=== PATIENT | male | born 1945 | race Caucasian/White ===

== ENCOUNTER 2016-03-20 07:30 | Inpatient (IN) ==
[2016-03-20 14:17] LABS: Blood Urea Nitrogen 16 mg/dl (8-23)
[2016-03-20 14:30] LABS: Appearance,Urine HAZY; Bilirubin,Urine NEG (NEG); Color,Urine YELLOW; Glucose,Urine (UA) NEGATIVE (NEG); Leukocyte Esterase,Urine NEG /uL (NEG); Nitrate,Urine NEG (NEG); Protein,Urine NEG (NEG); Specific Gravity,Urine 1.018 (1.000-1.035); Urine Blood NEG mg/dL (<0.03); Urobilinogen,Urine NEG (NEG)
[2016-03-20 14:56] LABS: Basophils # (Auto) 0 K/mcL (0.0-0.3); Basophils % (Auto) 0.3 % (0.0-2.0); Eosinophils # (Auto) 0.2 K/mcL (0.0-0.7); Eosinophils % (Auto) 2.6 % (0.0-7.0); Granulocytes % (Auto) 68.5 % (38.0-78.0); Lymphocytes # (Auto) 1.5 K/mcL (1.5-4.8); Lymphocytes % (Auto) 19.8 % (15.5-49.0); Mean Cell Volume 90.4 fL (80.0-100.0); Mean Corpuscular HGB Conc 32.7 g/dL (31.0-36.0); Mean Corpuscular Hemoglobin 29.6 pg (26.0-34.0); Monocytes # (Auto) 0.7 K/mcL (0.1-0.9); Monocytes % (Auto) 8.8 % (1.0-9.0); Platelet Count 181 K/mcL (140-440); RBC 5.26 M/mcL (4.50-5.90); Red Cell Distribution Width 13.2 % (11.5-14.5)
[2016-03-22] MEDS ORDERED: oxyCODONE 10 MG TAB.ER.12H PO SCH (05:00)
[2016-03-22] MEDS ORDERED: ceFAZolin 1 GM VIAL IV SCH (05:00)
[2016-03-22] MEDS ORDERED: CELECOXIB 200 MG CAPSULE PO SCH (05:00)
[2016-03-22] MEDS ORDERED: PREGABALIN 150 MG CAPSULE PO SCH (05:00)
[2016-03-22] MEDS ORDERED: KETOROLAC 30 MG, ROPIVACAINE HCL/PF 49.5 ML, EPINEPHrine 0.5 MG, 0.9 % SODIUM CHLORIDE ... IJ SCH (06:30)
[2016-03-22] MEDS ORDERED: TRANEXAMIC ACID 1,000 MG/10 ML VIAL IV ONE (08:15)
[2016-03-22] MEDS ORDERED: MIDAZOLAM 5 MG/5 ML VIAL IV ONE (08:15)
[2016-03-22] MEDS ORDERED: ROPIVACAINE HCL/PF 30 ML VIAL IJ ONE (08:15)
[2016-03-22] MEDS ORDERED: DEXAMETHASONE 10 MG/ML VIAL IV ONE (08:15)
[2016-03-22] MEDS ORDERED: PROPOFOL 200 MG/20 ML VIAL IV ONE (08:15)
[2016-03-22] MEDS ORDERED: ONDANSETRON 4 MG/2 ML VIAL IV ONE (08:15)
[2016-03-22] MEDS ORDERED: LIDOCAINE HCL/PF 100 MG/5 ML SYRINGE IV ONE (08:15)
[2016-03-22] MEDS ORDERED: GLYCOPYRROLATE 0.2 MG/ML VIAL IV ONE (08:15)
[2016-03-22] MEDS ORDERED: ATROPINE SULFATE 0.4 MG/ML VIAL IV PRN (09:25)
[2016-03-22] MEDS ORDERED: ONDANSETRON 4 MG/2 ML VIAL IV PRN ×2 (09:25→11:27)
[2016-03-22] MEDS ORDERED: METHOCARBAMOL 1,000 MG/10 ML VIAL IV PRN (09:25)
[2016-03-22] MEDS ORDERED: diphenhydrAMINE 50 MG/ML VIAL IV PRN (09:25)
[2016-03-22] MEDS ORDERED: NALOXONE HCL 0.4 MG/ML VIAL IV PRN (09:25)
[2016-03-22] MEDS ORDERED: MEPERIDINE 25 MG/ML SYRINGE IV PRN (09:25)
[2016-03-22] MEDS ORDERED: ePHEDrine 50 MG/ML AMPUL IV PRN (09:25)
[2016-03-22] MEDS ORDERED: fentaNYL 100 MCG/2 ML VIAL IV PRN (09:25)
[2016-03-22] MEDS ORDERED: BENZOCAINE/MENTHOL 1 LOZENGE PO PRN ×2 (09:25→11:27)
[2016-03-22] MEDS ORDERED: METOPROLOL TARTRATE 5 MG/5 ML VIAL IV PRN (09:25)
[2016-03-22] MEDS ORDERED: PROMETHAZINE 25 MG/ML VIAL IV PRN (09:25)
[2016-03-22] MEDS ORDERED: HYDROmorphone 2 MG/ML SYRINGE IV PRN ×2 (09:25→11:27)
[2016-03-22] MEDS ORDERED: IPRATROPIUM/ALBUTEROL 3 ML AMPUL.NEB NEB PRN (09:25)
[2016-03-22] MEDS ORDERED: FLUMAZENIL 0.1 MG/ML ML IV PRN (09:25)
[2016-03-22] MEDS ORDERED: LACTATED RINGERS 1,000 ML IV SCH (09:30)
[2016-03-22] MEDS ORDERED: TRANEXAMIC ACID 1,000 MG/10 ML VIAL IV SCH (09:55)
--- NOTE | 2016-03-22 10:07 | Brief Operative Note ---
Date of procedure: 03/22/16 Pre-op diagnosis: Left knee severe DJD Post-op diagnosis: same Procedure: Left TKA Grafts/Implants: Yes ([place] Triathlon CR femur 4, 5 tibia, 11 mm X3 insert, 36 patella) Anesthesia: spinal Findings: above Complications: none Surgeon: Syed Alfaro Fabric Sourcer: Alejandro Brothers Estimated blood loss (cc): 30 Specimens Removed/Pathology: none sent Condition: stable Disposition: PACU
--- NOTE | 2016-03-22 10:46 | XRay Report ---
CLINICAL INFORMATION: Postop total knee prostheses COMPARISON: None. FINDINGS: Total knee prosthesis anatomically aligned. There is no osseous abnormality. Periarticular soft tissue swelling and gas seen as expected. IMPRESSION: Negative Interpreted and Authenticated by: Aroldo Beck 03/22/16
--- NOTE | 2016-03-22 11:02 | Operative Note ---
DATE OF OPERATION: 03/22/2016 PREOPERATIVE DIAGNOSIS: Left knee severe degenerative joint disease. POSTOPERATIVE DIAGNOSIS: Left knee severe degenerative joint disease. PROCEDURE PERFORMED: Left total knee arthroplasty using a [place] Triathlon size 4 cruciate retaining femoral component, size 5 tibial baseplate, an 11 mm X3 insert with a 36 mm patellar button. SURGEON: Syed Alfaro MD. INSPECTOR AIR CARRIER: Maninder Brothers PA-C. ANESTHESIA: Spinal plus LMA general. DRAINS: None. SPECIMENS: Bone cuts, which were discarded. BLOOD LOSS: 30 mL POSTOPERATIVE CONDITION: Stable. INDICATIONS FOR SURGERY: This is a 70-year-old male who has had longstanding worsening left knee pain and radiographs showing severe bone on bone tricompartmental osteoarthritis. FINDINGS AT SURGERY: As above. Preoperatively, he had a quite significant flexion contracture. Postoperative diagnosis showed good overall limb alignment, stability, and patellar tracking. PROCEDURE IN DETAIL: The patient had been seen preoperatively. Informed consent had been obtained after discussion of risks and benefits of surgery. Risks including, but not limited to, bleeding, possibly requiring transfusion; infection, possibly requiring implant removal and prolonged IV antibiotics; injury to nerves, blood vessels, and other surrounding structures; anesthetic risks; incomplete or no resolution of symptoms; stiffness, pain; instability; DVT and pulmonary embolus risks; and the possibility of needing further surgery. He understood these risks and wished to proceed. Correct operative site was marked. Spinal anesthesia was given in preoperative holding and the patient was taken to the operating room and general anesthesia induced. The left lower extremity was carefully prepped and draped in normal sterile fashion and a time-out was performed verifying patient name, operative site, and plan. Esmarch was used to exsanguinate the extremity and tourniquet was inflated. Skin surface was covered with Ioban and then Esmarch was used to exsanguinate the extremity and tourniquet was inflated to 300. Midline incision was made with a scalpel through skin and subcutaneous tissue and then a medial parapatellar arthrotomy made. IrriSept was irrigated and then subperiosteal exposure was done of the anterior medial tibia and distal anterior cortex of the femur. ACL was transected. We went ahead and cut our patella first measuring with a caliper and then freehand resection to within a millimeter of his ch[place]im[place] thickness using a 10 mm patellar button. We went ahead and placed the cut protector and then subluxed the patella off the side. A drill hole was made in the distal femur and flexible IM crispin passed. A 5 degree valgus cut block was pinned into place. Due to his large flexion contracture, we went ahead and moved our distal cut up to a 10 mm resection. We went ahead and made our distal femur cut and then marked our [place]'s line epicondylar access. The sizer block was pinned into place and we stylused. It appeared to be between a 4 and 5. We went ahead and matched 3 degrees of external rotation to his [place] line epicondylar access. We drilled our holes. Size 5 4-in-1 block was placed. We went ahead and made our anterior cut. This was not deep enough and was significantly proud so we went ahead and downsized to a size 4 and recut our anterior cut. This was more flush with the anterior cortex so we went ahead and made our posterior and chamfer cuts. Osteophytes were removed medially and laterally and then tibia was subluxed forward. Medial and lateral menisci were excised and then a drill hole was made in the ACL footprint. The IM crispin was passed down. We stylused 9 off of the lateral side which is most normal. We pinned this into place, 3 degree slope and made our tibial cut. This came out just below our medial defect and we sized this to a size 5. The tibia was externally rotated as bone coverage would allow to the medial third of the tibial tubercle and pinned into place. Boss reamer and keel punch were used to repair and a keeled tibial trial was placed. The femur was elevated and a curved osteotome used to remove posterior osteophytes and then curved curet to remove them. We then placed our size 4 femur. We centered this with the notch as he was quite a bit wider medial to lateral and anterior to posterior. Once this was positioned, we drilled our peg holes. The 9 insert trial was placed which showed reasonable stability. We went ahead and then sized the patella to 36, which was medialized maximally. Holes were drilled and then a patellar trial was placed. Again, we remeasured and we were within 1 mm of our preoperative patellar thickness. We went ahead and performed a lateral facetectomy and then checked our patellar tracking, which was excellent. We went ahead and opened our implants except for the insert. We removed trial implants and irrigated IrriSept. After a minute, we pulse lavaged copiously while antibiotic cement was mixed. We cemented the tibia followed by the femur after cleaning the cancellous surfaces with CO2 gun. Excess cement was removed and the 9 insert trial was placed. The knee was placed into full extension and then final cement removal was done. We then cemented the patella and went ahead and injected our pain cocktail into the pericapsular tissues, as well as the subcutaneous. The knee was held in full extension and more IrriSept was irrigated until cement had fully hardened, we then pulse lavaged again and removed the trial insert. We went ahead and tried an 11 insert and this improved stability even better. We were still able to get nearly full extension, so we went ahead and opened an 11 insert. We injected the remainder of the cocktail in the posterior medial capsule and then the 11 X3 insert was impacted, carefully verified to be fully seated. We then did and final IrriSept to the joint, after minute pulse lavaged and then placed the knee over a bump. Interrupted #1 Vicryl was used, [id number] around the patella and running #1 Vicryl for patellar tendon and quad tendon. Another IrriSept irrigation was done and then after a minute pulse lavaged, and then 2-0 Monocryl used for subcutaneous and gee for skin. Xeroform and sterile dressing were applied. Tourniquet was released. The patient was awakened, extubated, and transferred to recovery in stable condition. SAEID:[email or web address] Job ID: [id number] Doc ID: [id number] Syed Alfaro MD
[2016-03-22] MEDS ORDERED: POLYETHYLENE GLYCOL 3350 17 GM PACKET PO PRN (11:27)
[2016-03-22] MEDS ORDERED: MAGNESIUM HYDROXIDE 30 ML ORAL.SUSP PO PRN (11:27)
[2016-03-22] MEDS ORDERED: BISACODYL 10 MG SUPP.RECT PR PRN (11:27)
[2016-03-22] MEDS ORDERED: FLEETS ADULT ENEMA PR PRN (11:27)
[2016-03-22] MEDS: 0.9 % SODIUM CHLORIDE 1,000 ML IV SCH ×2 (13:14→22:36)
[2016-03-22] MEDS: 0.9 % SODIUM CHLORIDE 10 ML SYRINGE IV SCH ×2 (15:41→22:38)
[2016-03-22] MEDS: KETOROLAC 15 MG/ML VIAL IV SCH ×2 (15:41→17:34)
[2016-03-22] MEDS: ceFAZolin 1 GM VIAL IV SCH (18:55)
[2016-03-22] MEDS: HYDROcodone/APAP 10/325MG TABLET PO PRN (20:41)
[2016-03-22] MEDS: DOCUSATE SODIUM 100 MG CAPSULE PO SCH (20:41)
[2016-03-22] MEDS: ASPIRIN 325 MG ENTERIC COATED TABLET PO SCH (20:41)
[2016-03-22] MEDS ORDERED: SENNOSIDES 1 TABLET PO SCH (21:00)
[2016-03-23] MEDS: KETOROLAC 15 MG/ML VIAL IV SCH ×3 (00:51→12:24)
[2016-03-23] MEDS: 0.9 % SODIUM CHLORIDE 1,000 ML IV SCH ×2 (00:51→07:55)
[2016-03-23] MEDS: ceFAZolin 1 GM VIAL IV SCH (03:41)
[2016-03-23] MEDS ORDERED: ceFAZolin 1 GM VIAL ONE (03:48)
[2016-03-23] MEDS: 0.9 % SODIUM CHLORIDE 10 ML SYRINGE IV SCH (06:10)
[2016-03-23] MEDS: HYDROcodone/APAP 10/325MG TABLET PO PRN ×2 (07:36→12:24)
[2016-03-23] MEDS: DOCUSATE SODIUM 100 MG CAPSULE PO SCH (08:20)
[2016-03-23] MEDS: ASPIRIN 325 MG ENTERIC COATED TABLET PO SCH (08:20)
[2016-03-23] MEDS ORDERED: CYANOCOBALAMIN (VITAMIN B-12) 500 MCG TABLET PO SCH (09:00)
[2016-03-23] MEDS ORDERED: MULTIVIT,THER IRON,CA,FA & MIN 1 TABLET PO SCH (09:00)
[2016-03-23] MEDS ORDERED: MAG HYDROX/AL HYDROX/SIMETH 30 ML ORAL.SUSP PO PRN (10:25)
--- NOTE | 2016-03-23 10:52 | Discharge Summary ---
Providers - Providers Patient information: Note initiated : 03/23/16 at 10:49 am Service Date, if different from initiated Date: [] Patient: Chet Sanchez 70 y/o M admitted on 03/22/16 for Left Total Knee Arthroplasty. Chief Complaint: [] Date of admission: 03/22/16 Discharge date: 03/23/16 Attending physician: Syed Alfaro Hospitalization Hospital course: Admitted after TKA. Progressed quickly and pain controlled so d/c'd POD#1. Discharge diagnosis: s/p L TKA Reason for admission: Left knee pain Procedures: Left TKA Exam - Exam Clean and dry: Yes Weight bearing status: full Ortho Discharge - TKA - Patient Instructions Diet: Regular Diet Activity: activity as tolerated, weight bearing as tolerated Total Knee Protocol: For Total Knee: Start ROM HARDEEP with stationary bike or rocking chair. Work on gaining full extension of knee. Posterior dislocation precautions provided. Hip abductor strengthening and gait training instructions provided. Apply Cryocuff as instructed. Dressing Care: May shower in 2 days, Aquacel Ag - leave on for 5 days Patient Education: Total Knee Replacement (DC) - Follow Up Plan Follow Up Appointments: Alejandro Brothers PA-C [Physician Information Resources Director] - 04/04/16 10:40 am Disposition: Home, Self-Care Prognosis: Good Rehab Potential: Good - Orders For Discharge Additional Discharge Orders: Physical Therapy at Discharge - TKA Location: Determined By Patient Toilet Riser Discharge Order Location: Determined By Patient Walker Location: Determined By Patient Pending Studies Resuscitation Status Full Code Diet Regular Diet Start FriMar 22 Lunch Acetaminophen/Hydrocodone Bitart ([place] 10/325mg) 0 tab PO Q4HP PRN PRN Reason: Pain Last Admin: 03/23/16 07:36 Dose: 1 tab Admin: 03/22/16 20:41 Dose: 1 tab Al Hydrox/Mg Hydrox/Simethicone (Maalox) 30 ml PO Q4-6HP PRN PRN Reason: Dyspepsia Last Admin: 03/23/16 10:40 Dose: 30 ml Aspirin (Ecotrin) 325 mg PO BID [facility] Last Admin: 03/23/16 08:20 Dose: 325 mg Admin: 03/22/16 20:41 Dose: 325 mg Cyanocobalamin (Vitamin B-12) 2,000 mcg PO DAILY [facility] Last Admin: 03/23/16 08:20 Dose: 2,000 mcg Docusate Sodium (Colace) 100 mg PO BID [facility] Last Admin: 03/23/16 08:20 Dose: 100 mg Admin: 03/22/16 20:41 Dose: 100 mg Sodium Chloride (Sodium Chloride 0.9%) 1,000 mls @ 100 mls/hr IV .Q10H [facility] Last Infusion: 03/23/16 07:56 Dose: 0 mls/hr Admin: 03/23/16 07:55 Dose: Admin: 03/23/16 00:51 Dose: 100 mls/hr Infusion: 03/22/16 23:14 Dose: 100 mls/hr Admin: 03/22/16 22:36 Dose: Admin: 03/22/16 13:14 Dose: 100 mls/hr Iron Carb/Multivit/[place]/Folic Acid (Multivitamin W/Minerals) 1 tab PO DAILY [facility] Last Admin: 03/23/16 08:20 Dose: 1 tab Ketorolac Tromethamine (Toradol) 15 mg IV Q6 [facility] Stop: 03/24/16 06:01 Last Admin: 03/23/16 05:36 Dose: 15 mg Admin: 03/23/16 00:51 Dose: 15 mg Admin: 03/22/16 17:34 Dose: 15 mg Admin: 03/22/16 15:41 Dose: 15 mg Senna (Senokot) 2 tab PO HS [facility] Last Admin: 03/22/16 20:41 Dose: 2 tab Sodium Chloride (Saline Flush) 10 ml IV Q8 [facility] Last Admin: 03/23/16 06:10 Dose: 10 ml Admin: 03/22/16 22:38 Dose: Not Given Admin: 03/22/16 15:41 Dose: 10 ml Shift Summary 03/23/16 04:17 Shift Summary by Ramirez German Patient has been up AMB in moss x1, as well as to & from bathroom x2 with FWW- gait mostly stable with SBA. NS @ 100 to LT F/A - can be saline locked. He was straight cathed for 900ml @ 1820 - has voided x2 since, with last void being 225ml @ 0345 - PVR scan for 211ml. Devendra wrap to LT knee - C,D,I. Has used CPM 0-65, and cryo-cuff regularly. He has taken only 1x dose [place] 10 (1) PO @ 2034 - otherwise pain well controlled with scheduled Toradol. Initialized on 03/23/16 04:17 - END OF NOTE
== END 2016-03-23 12:40 | disposition home or self-care (01) | DRG 470 ==
LOC: MEDSUR 03-22 04:55
PROVIDERS: ADMIT Orthopaedic Surgery; ATTEND Orthopaedic Surgery

== ENCOUNTER 2018-04-29 04:44 | Inpatient (IN) ==
[2018-04-24 12:10] LABS: Appearance,Urine CLEAR; Bilirubin,Urine NEG (NEG); Color,Urine YELLOW; Glucose,Urine (UA) NEGATIVE (NEG); Leukocyte Esterase,Urine NEG /uL (NEG); Protein,Urine NEG (NEG); Specific Gravity,Urine 1.018 (1.000-1.035); Urine Blood NEG mg/dL (<0.03); Urobilinogen,Urine NEG (NEG)
[2018-04-24 13:31] LABS: Basophils # (Auto) 0 K/mcL (0.0-0.3); Basophils % (Auto) 0.6 % (0.0-2.0); Eosinophils # (Auto) 0.2 K/mcL (0.0-0.7); Eosinophils % (Auto) 2.6 % (0.0-7.0); Granulocytes % (Auto) 71.3 % (38.0-78.0); Lymphocytes # (Auto) 1.2 K/mcL (1.5-4.8); Lymphocytes % (Auto) 17.5 % (15.5-49.0); Mean Cell Volume 87.9 fL (80.0-100.0); Mean Corpuscular HGB Conc 33.3 g/dL (31.0-36.0); Monocytes # (Auto) 0.5 K/mcL (0.1-0.9); Platelet Count 184 K/mcL (140-440); RBC 4.83 M/mcL (4.50-5.90); Red Cell Distribution Width 13.5 % (11.5-14.5)
[2018-04-24 14:27] LABS: Estimated Average Glucose(eAG) 114 mg/dL; Hemoglobin A1C 5.6 % HGB (4.0-6.0)
[2018-04-24 16:56] LABS: Blood Urea Nitrogen 16 mg/dl (8-23)
[2018-04-29] MEDS ORDERED: CELECOXIB 200 MG CAPSULE PO SCH (07:00)
[2018-04-29] MEDS ORDERED: oxyCODONE 10 MG TAB.ER.12H PO SCH (07:00)
[2018-04-29] MEDS ORDERED: PREGABALIN 75 MG CAPSULE PO SCH (07:00)
[2018-04-29] MEDS ORDERED: 0.9 % SODIUM CHLORIDE 9 ML, KETOROLAC 30 MG, ROPIVACAINE HCL/PF 49.5 ML, EPINEPHrine 0.... IJ SCH (07:00)
[2018-04-29] MEDS ORDERED: ceFAZolin 1 GM VIAL IV SCH (07:00)
[2018-04-29] MEDS ORDERED: MIDAZOLAM 5 MG/5 ML VIAL IV ONE (07:50)
[2018-04-29] MEDS ORDERED: TRANEXAMIC ACID 1,000 MG/10 ML VIAL IV ONE (07:50)
[2018-04-29] MEDS ORDERED: KETAMINE 100 MG/ML ML IV ONE (07:50)
[2018-04-29] MEDS ORDERED: DEXAMETHASONE 10 MG/ML VIAL IV ONE (07:50)
[2018-04-29] MEDS ORDERED: ONDANSETRON 4 MG/2 ML VIAL IV ONE (07:50)
[2018-04-29] MEDS ORDERED: fentaNYL 100 MCG/2 ML VIAL IV ONE (07:50)
[2018-04-29] MEDS ORDERED: LIDOCAINE HCL/PF 100 MG/5 ML SYRINGE IV ONE (07:50)
[2018-04-29] MEDS ORDERED: PROPOFOL 200 MG/20 ML VIAL IV ONE (07:50)
[2018-04-29] MEDS ORDERED: ROPIVACAINE HCL/PF 20 ML VIAL IJ ONE (07:50)
[2018-04-29] MEDS ORDERED: BENZOCAINE/MENTHOL 1 LOZENGE PO PRN ×2 (09:03→09:28)
[2018-04-29] MEDS ORDERED: ONDANSETRON 4 MG/2 ML VIAL IV PRN ×2 (09:03→09:28)
[2018-04-29] MEDS ORDERED: IPRATROPIUM/ALBUTEROL 3 ML AMPUL.NEB NEB PRN (09:03)
[2018-04-29] MEDS ORDERED: KETOROLAC 15 MG/ML VIAL IV PRN (09:03)
[2018-04-29] MEDS ORDERED: NALOXONE HCL 0.4 MG/ML VIAL IV PRN (09:03)
[2018-04-29] MEDS ORDERED: ACETAMINOPHEN 1,000 MG/100 ML BOTTLE IV ONE (09:03)
[2018-04-29] MEDS ORDERED: LACTATED RINGERS 250 ML IV PRN (09:03)
[2018-04-29] MEDS ORDERED: diphenhydrAMINE 50 MG/ML VIAL IV PRN (09:03)
[2018-04-29] MEDS ORDERED: fentaNYL 100 MCG/2 ML VIAL IV PRN (09:03)
[2018-04-29] MEDS ORDERED: PROMETHAZINE 25 MG/ML VIAL IV PRN (09:03)
[2018-04-29] MEDS ORDERED: FLUMAZENIL 0.1 MG/ML ML IV PRN (09:03)
[2018-04-29] MEDS ORDERED: LACTATED RINGERS 1,000 ML IV SCH (09:15)
[2018-04-29] MEDS ORDERED: POLYETHYLENE GLYCOL 3350 17 GM PACKET PO PRN (09:28)
[2018-04-29] MEDS ORDERED: HYDROmorphone 2 MG/ML VIAL IV PRN (09:28)
[2018-04-29] MEDS ORDERED: BISACODYL 10 MG SUPP.RECT PR PRN (09:28)
[2018-04-29] MEDS ORDERED: HYDROcodone/APAP 10/325MG TABLET PO PRN (09:28)
[2018-04-29] MEDS ORDERED: TRANEXAMIC ACID 1,000 MG/10 ML VIAL IV SCH (09:28)
[2018-04-29] MEDS ORDERED: MAGNESIUM HYDROXIDE 30 ML ORAL.SUSP PO PRN (09:28)
[2018-04-29] MEDS ORDERED: FLEETS ADULT ENEMA PR PRN (09:28)
--- NOTE | 2018-04-29 09:28 | Brief Operative Note ---
Date of procedure: 04/29/18 Pre-op diagnosis: R knee severe osteoarthritis Post-op diagnosis: same Procedure: Right robotic assisted total knee arthroplasty Grafts/Implants: Yes ([place] Triathlon CR 5 femur, 5 tibia, 9mm insert, 36 patella) Anesthesia: spinal, GLMA Findings: severe arthritis Complications: none Surgeon: Syed Alfaro Oracle Application Consultant: Alejandro Brothers Estimated blood loss (cc): 30 Specimens Removed/Pathology: none sent Condition: stable Disposition: PACU
--- NOTE | 2018-04-29 10:04 | Operative Note ---
DATE OF OPERATION: 04/29/2018 PREOPERATIVE DIAGNOSIS: Right knee severe osteoarthritis. POSTOPERATIVE DIAGNOSIS: Right knee severe osteoarthritis. PROCEDURE PERFORMED: Right robotic-assisted total knee arthroplasty placing a [place] Triathlon size 5 cruciate retaining femoral component, size 5 tibial baseplate, 9 mm X3 tibial insert with a 36 mm patellar button. SURGEON: Syed Alfaro M.D. FICTION AND NONFICTION WRITER PROSE: Maninder Brothers PA-C. ANESTHESIA: Spinal plus general. DRAINS: None. SPECIMENS: Bone cuts which were discarded. BLOOD LOSS: 30 mL. COMPLICATIONS: None. POSTOPERATIVE CONDITION: Stable. INDICATIONS FOR SURGERY: This is a 72-year-old male who has had longstanding, progressive worsening right knee pain. Radiographs showed eynh-al-uart osteoarthritis with multi-compartment osteophytes. FINDINGS AT SURGERY: He had severe multi-compartment osteoarthritis. Post implantation showed good limb alignment, stability, and patellar tracking. PROCEDURE IN DETAIL: The patient had been seen preoperatively and informed consent had been obtained after discussion of risks and benefits of surgery. Risks including, but not limited to, bleeding; infection; injury to nerves, blood vessels, other surrounding structures; anesthetic risks; incomplete or no resolution of symptoms; stiffness; swelling; pain; instability; DVT and pulmonary embolus risks; and the possibility of needing further revision surgery. He understood these risks and wished to proceed. Correct operative site was marked in preoperative holding and patient received spinal anesthesia. He was then taken to the operating room and LMA general given. The right lower extremity was then carefully prepped and draped in normal sterile fashion and a time-out was performed verifying patient name, operative site, and plan. Esmarch was used to exsanguinate the extremity and tourniquet was inflated to 300 mmHg. A midline incision was made with a scalpel through skin and subcutaneous tissue. Irrisept was irrigated and then a medial parapatellar arthrotomy made. Subperiosteal exposure was done of the anterior medial tibia. Anterior horns of the menisci were removed. ACL was transected. Femoral and tibial checkpoints were placed, then two stab incisions were made over the tibia and two over the femur, and bicortical pins placed and the arrays connected. Irrisept was irrigated in the joint and then around the pin sites. We then did our hip center of rotation check. The green probe was used to identify the medial and lateral malleoli, as well as do double checks of our femoral and tibial check points. Blue probe was then used to do our mapping. Once this was completed, osteophytes were removed with the rongeur. We then did our ligament balancing. We ended up placing 2 degrees of varus in the tibia and 3 degrees on the femur to get 17 mm gaps. Flexion medial and lateral and extension medial and lateral was 18 mm. We then used the robotic assistance to make our bone cuts. We then prepared the tibia with the boss reamer and keel punch, externally rotating as bone coverage would allow. We then elevated the femur and removed posterior osteophytes with a curved osteotome and curved curet. We then placed the femoral trial. A 9 mm trial was impacted. The knee was then taken into extension. Patella was prepared freehand technique with a saw and then a 36 medialized maximally. Holes were drilled and trial placed. A lateral facetectomy was performed with the saw blade. We then checked our patellar tracking which was excellent. It tracked perfectly without any pressure. We went ahead and removed the trial implants. Definitive implants were opened. The joint was irrigated with Irrisept. We made drill holes in the tibia at the sclerotic bone while antibiotic cement was mixed. We then pulse lavaged with saline. CO2 gun was used to clean and dry the cancellous surfaces and then we cemented the tibia. Excess cement removed. We then cemented the femur and excess cement removed. A 9 insert trial was placed and the knee was taken into extension. We were 6 degrees short of full. We then cemented the patella. While cement was hardening, we removed checkpoints and filled the joint with Irrisept. We removed the arrays and the pins from the femur and tibia. We injected pain cocktail into the pericapsular and subcutaneous tissues. Once cement was fully dried, we flexed the knee up, removed the insert trial, and injected the posteromedial capsule. We opened a 9 insert. We irrigated Irrisept on the tray and then impacted the insert, carefully verifying it was fully seated. We then after a minute pulse lavaged with saline copiously and then the knee was taken into 45 degrees of flexion. Interrupted #2 FiberWire [id number] were used around the superior quadrant of the patella, interrupted #1 Vicryl xxhaer-jv-wundbo used around the inferior quadrant, running #1 Vicryl was used for patellar tendon and quad tendon. Final Irrisept irrigation was done, after a minute final pulse lavage, and then 2-0 Monocryl for subcutaneous and gee for skin. Xeroform and sterile dressing were applied. Tourniquet was released. The patient was awakened, extubated, and transferred to recovery in stable condition. BJB:[email or web address] Job ID: [id number] Doc ID: [id number] Syed Alfaro MD
--- NOTE | 2018-04-29 10:33 | XRay Report ---
CLINICAL INFORMATION: Right knee replacement TECHNIQUE: AP, crosstable lateral, patellar views COMPARISON: None. FINDINGS: Status post right total knee arthroplasty. Femoral and tibial components are in anatomic positions. This postsurgical intra-articular and soft tissue gas. There are skin gee anteriorly. IMPRESSION: Status post right total knee arthroplasty Interpreted and Authenticated by: Aroldo Miranda 04/29/18
[2018-04-29] MEDS: 0.9 % SODIUM CHLORIDE 1,000 ML IV SCH ×2 (11:05→21:14)
[2018-04-29] MEDS: KETOROLAC 15 MG/ML VIAL IV SCH ×3 (12:04→23:54)
[2018-04-29] MEDS: ceFAZolin 1 GM VIAL IV SCH ×2 (15:40→23:54)
[2018-04-29] MEDS: 0.9 % SODIUM CHLORIDE 10 ML SYRINGE IV SCH ×2 (15:45→21:14)
[2018-04-29] MEDS ORDERED: SENNOSIDES 1 TABLET PO SCH (21:00)
[2018-04-29] MEDS: DOCUSATE SODIUM 100 MG CAPSULE PO SCH (21:14)
[2018-04-29] MEDS: ASPIRIN 325 MG ENTERIC COATED TABLET PO SCH (21:14)
[2018-04-30] MEDS: 0.9 % SODIUM CHLORIDE 10 ML SYRINGE IV SCH (05:37)
[2018-04-30] MEDS: KETOROLAC 15 MG/ML VIAL IV SCH (05:37)
[2018-04-30] MEDS: 0.9 % SODIUM CHLORIDE 1,000 ML IV SCH (05:40)
--- NOTE | 2018-04-30 08:00 | Discharge Summary ---
Providers - Providers Patient information: Note initiated : 04/30/18 at 7:59 am Service Date, if different from initiated Date: [] Patient: Chet Sanchez 72 y/o M admitted on 04/29/18 for Right Robotic Total Knee Arthroplasty. Chief Complaint: [] Discharge date: 04/30/18 Hospitalization Hospital course: Pt was admitted for a TKA. Pt underwent procedure on the day of admission. Pt discharged on post-op day 1. Pt will take ASA for DVT prophylaxis. Will attend out-pt PT.Will f/u at [facility] in 2 weeks. Discharge diagnosis: knee OA Exam - Exam Clean and dry: Yes Weight bearing status: as tolerated Ortho Discharge - TKA - Patient Instructions Diet: Regular Diet Activity: activity as tolerated Total Knee Protocol: For Total Knee: Start ROM HARDEEP with stationary bike or rocking chair. Work on gaining full extension of knee. Posterior dislocation precautions provided. Hip abductor strengthening and gait training instructions provided. Apply Cryocuff as instructed. Dressing Care: May shower in 2 days - Follow Up Plan Disposition: Home, Self-Care Prognosis: Good Rehab Potential: Good Overall status at discharge: patient is progressing back to baseline - Orders For Discharge Prescriptions: Aspirin [Ecotrin] 325 mg PO BID #30 tab.ec HYDROcodone/ACETAMINOPHEN [[place] 7.5-325 Tablet] 1 - 2 tab PO Q6 PRN #75 tab PRN Reason: Pain Additional Discharge Orders: Physical Therapy at Discharge - General Location: None Selected Walker Location: None Selected Pending Studies Resuscitation Status Full Code Diet Regular Diet Start FriApr 29 929 Hydrocodone Bitart/Acetaminophen ([place] 10/325mg) 0 tab PO Q4HP PRN PRN Reason: PAIN LEVEL 3-6 Last Admin: 04/29/18 21:13 Dose: 1 tab Documented by: CAT Aspirin (Ecotrin) 325 mg PO BID [facility] Last Admin: 04/29/18 21:14 Dose: 325 mg Documented by: CAT Docusate Sodium (Colace) 100 mg PO BID [facility] Last Admin: 04/29/18 21:14 Dose: 100 mg Documented by: CAT Hydromorphone HCl (Dilaudid) 0 mg IV Q2HP PRN PRN Reason: PAIN LEVEL > 6 Last Admin: 04/29/18 10:42 Dose: 0.5 mg Documented by: NEY Sodium Chloride (Sodium Chloride 0.9%) 1,000 mls @ 100 mls/hr IV .Q10H [facility] Last Admin: 04/30/18 05:40 Dose: Not Given Documented by: Admin: 04/29/18 21:14 Dose: Not Given Documented by: Admin: 04/29/18 11:05 Dose: 100 mls/hr Documented by: NEY Ketorolac Tromethamine (Toradol) 15 mg IV Q6 [facility] Stop: 05/01/18 06:01 Last Admin: 04/30/18 05:37 Dose: 15 mg Documented by: Admin: 04/29/18 23:54 Dose: 15 mg Documented by: Admin: 04/29/18 18:18 Dose: 15 mg Documented by: Admin: 04/29/18 12:04 Dose: 15 mg Documented by: NEY Ondansetron HCl (Zofran) 4 mg IV Q4HP PRN PRN Reason: Nausea And Vomiting Last Admin: 04/29/18 10:42 Dose: 4 mg Documented by: NEY Senna (Senokot) 2 tab PO HS [facility] Last Admin: 04/29/18 21:14 Dose: 2 tab Documented by: CAT Sodium Chloride (Saline Flush) 10 ml IV Q8 [facility] Last Admin: 04/30/18 05:37 Dose: 10 ml Documented by: Admin: 04/29/18 21:14 Dose: 10 ml Documented by: Admin: 04/29/18 15:45 Dose: Not Given Documented by: NEY Shift Summary 04/30/18 04:25 Shift Summary by Katie Gonzales Doing well. Medicated with scheduled Toradol and [place] 10mg (1tab) x1 so far. Reinforced bandage to incision site r/t bleeding through. Up with SBA and FWW. Voiding fine. In CPM for 90minutes at 55 degrees. Cryo cuff used. SL 18G IV to LFA. Should d/c home today. Initialized on 04/30/18 04:25 - END OF NOTE
[2018-04-30] MEDS ORDERED: VITAMIN D3 5,000 UNIT CAPSULE PO SCH (09:00)
[2018-04-30] MEDS ORDERED: LOSARTAN 50 MG TABLET PO SCH (09:00)
[2018-04-30] MEDS ORDERED: CYANOCOBALAMIN (VITAMIN B-12) 500 MCG TABLET PO SCH (09:00)
[2018-04-30] MEDS ORDERED: TAMSULOSIN 0.4 MG CAPSULE PO SCH (09:00)
[2018-04-30] MEDS ORDERED: MULTIVIT,THER IRON,CA,FA & MIN 1 TABLET PO SCH (09:00)
[2018-04-30] MEDS: DOCUSATE SODIUM 100 MG CAPSULE PO SCH (09:06)
[2018-04-30] MEDS: ASPIRIN 325 MG ENTERIC COATED TABLET PO SCH (09:07)
[2018-04-30] MEDS ORDERED: PNEUMOCOCCAL 23-VAL P-SAC VAC 0.5 ML SYRINGE IM ONE (10:00)
== END 2018-04-30 10:40 | disposition home or self-care (01) | DRG 470 ==
LOC: MEDSUR 04:44
PROVIDERS: ADMIT Orthopaedic Surgery; ATTEND Orthopaedic Surgery